=== PATIENT | male | born 1990 | race Caucasian/White ===

== ENCOUNTER → 2019-09-09 15:43 | Outpatient (BNVA) | payer SELFPAY | PROVIDERS: Visit Provider Nurse Practitioner Family | DX: R05 Cough (principal); J01.40 Acute pansinusitis, unspecified | CPT/HCPCS: 87081; 87804; 87880 ==

== ENCOUNTER 2020-02-24 12:36 | Emergency (ER) | payer SELFPAY ==
[2020-02-24 12:38] VITALS: BP 119/79; PULSE 89; RESP 18; TEMP 35.8; O2SAT 94; BMI 19.2
--- NOTE | 2020-02-24 12:49 | W.ED.EXTPRO ---
HPI - Extremity Problem General: Chief complaint: Extremity Injury, Lower Stated complaint: foot pain Time Seen by Provider: 02/24/20 12:40 Source: patient Mode of arrival: ambulatory Limitations: no limitations History of Present Illness: HPI Narrative: Patient is a 29-year-old male who presents to ED today with a complaint of right foot pain. Patient tells me pain initially began approximately a week and a half ago. He denies any known injury or trauma to the extremity. He complains of pain to the top lateral portion of his foot. He has noticed a small amount of swelling and bruising. 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 He denies dropping anything onto his foot. Patient is still able to ambulate on the extremity but states it is becoming increasingly difficult. He denies numbness, tingling, loss/changes in sensation of the foot. He has not noticed any redness/warmth or coolness/pallor. Associated symptoms: Deny fever(s) Review of Systems Const: Denies: fever(s) or chills Musc: Reports: extremity pain (R foot); Denies: neck pain, back pain, joint redness, joint warmth, limited range of motion or muscle cramps Neuro: Denies: numbness in extremities, weakness in extremities or sensory changes [facility] ED PFSH: Social History (Updated 09/09/19 @ 14:29 by Jade Castro LPN) Smoking and tobacco status: current every day smoker Alcohol intake: current Alcohol intake frequency: holidays/special occasions only Physical Exam Const: COMMON NORMALS: no acute distress, average body habitus, patient oriented x3, no limitations, healthy appearing, alert and well nourished Extremity: COMMON NORMALS: full ROM, capillary refill normal, no joint enlargement, no clubbing, cyanosis or edema, no calf tenderness and no pedal edema GENERAL: Yes normal exam except as noted OTHER: TTP lateral dorsal R foot; mild swelling and ecchymosis noted here; NV intact; DP/PT pulses and cap refill normal/equal bilaterally; no redness/warmth Neuro: COMMON NORMALS: patient oriented x3, moves all extremities, no focal motor deficits and no sensory deficits noted SENSORIUM/ORIENTATION: Yes alert Skin: NARRATIVE SKIN EXAM: see extremity assessment-otherwise normal skin exam Course Vital Signs: Vital signs: Vital Signs Temperature 96.5 F L 02/24/20 12:38 Pulse Rate 89 02/24/20 12:38 Respiratory Rate 18 02/24/20 12:38 Blood Pressure 119/79 02/24/20 12:38 Pulse Oximetry 94 02/24/20 12:38 MDM - Extremity (Nontraumatic) Imaging Data^: XR R foot: Radiologist's impression: [address] [address] XRay Report Signed Patient: Jaydon Rushing Unit #: [id number] : 1990 Age/Sex: 29 / M ADM Date: 02/24/20 Loc: ER Room/Bed: Attending Dr: Ordering Provider/Ordering MD: Maya Castro Date of Service: 02/24/20 Procedure(s): XR foot RT min 3V* 98364 Accession Number(s): [id number] Report Number: [id number] PROCEDURE INFORMATION: Exam: XR Right Foot Complete Exam date and time: 02/24/2020 1:00 PM Age: 29 years old Clinical indication: Pain; Swelling, leg or foot; Right; Additional info: Pain/swelling TECHNIQUE: Imaging protocol: XR Right foot. Views: 3 or more views. COMPARISON: No relevant prior studies available. FINDINGS: Bones/joints: Normal. Soft tissues: Normal. XR/XR foot RT min 3V* 55629 IMPRESSION: No acute findings. Dictated By: Steven Lenz MD Signed By: Steven Lenz MD Signed Date/Time: 02/24/201316 DD/ 131 Discharge Plan Discharge Patient Disposition: Home Clinical Impression: Acute pain of right foot Condition: Stable Prescriptions: No Action Tylenol Extra Strength 500 mg Tablet 1,000 mg PO PRN RF: 0 Discharge Orders: Discharge Order (Routine); Ordered 02/24/20 Ordered By: Maya Castro Activity Restrictions/Additional Instructions: As discussed you may begin using an Johan wrap as well as purchasing supportive insoles to wear in your boots at work. After work please ice and elevate the extremity. Follow-up with primary care in 2 weeks for continued symptoms. Coding Level of Care Code ED Converter Skimmer for Chg Fwd Exam Expanded Problem Focused
--- NOTE | 2020-02-24 13:26 | W.ED.EXTPRO ---
HPI - Extremity Problem General: Chief complaint: Extremity Injury, Lower Stated complaint: foot pain Time Seen by Provider: 02/24/20 12:40 Source: patient Mode of arrival: ambulatory Limitations: no limitations History of Present Illness: Associated symptoms: Deny fever(s) or rash Review of Systems Const: Denies: fever(s) or chills Musc: Reports: extremity pain (R foot) Skin/Breast: Denies: rash Neuro: Denies: numbness in extremities, weakness in extremities or sensory changes PFS ED PFSH: Social History (Updated 09/09/19 @ 14:29 by Jade Castro LPN) Smoking and tobacco status: current every day smoker Alcohol intake: current Alcohol intake frequency: holidays/special occasions only Physical Exam Const: COMMON NORMALS: no acute distress, average body habitus, no limitations, healthy appearing, alert and well nourished Neuro: COMMON NORMALS: moves all extremities, no focal motor deficits, no sensory deficits noted and gait normal SENSORIUM/ORIENTATION: Yes alert Skin: COMMON NORMALS: no rashes or lesions noted GENERAL SKIN EXAM: no rashes or lesions noted Course Vital Signs: Vital signs: Vital Signs Temperature 96.5 F L 02/24/20 12:38 Pulse Rate 86 02/24/20 13:27 Respiratory Rate 18 02/24/20 13:27 Blood Pressure 137/76 02/24/20 13:27 Pulse Oximetry 94 02/24/20 13:27 MDM - Extremity (Nontraumatic) Imaging Data^: R foot XR: Radiologist's impression: [place] [address] XRay Report Signed Patient: Jaydon Rushing Unit #: [id number] : 1990 Age/Sex: 29 / M ADM Date: 02/24/20 Loc: ER Room/Bed: Attending Dr: Ordering Provider/Ordering MD: Maya Castro Date of Service: 02/24/20 Procedure(s): XR foot RT min 3V* 15338 Accession Number(s): [id number] Report Number: [id number] PROCEDURE INFORMATION: Exam: XR Right Foot Complete Exam date and time: 02/24/2020 1:00 PM Age: 29 years old Clinical indication: Pain; Swelling, leg or foot; Right; Additional info: Pain/swelling TECHNIQUE: Imaging protocol: XR Right foot. Views: 3 or more views. COMPARISON: No relevant prior studies available. FINDINGS: Bones/joints: Normal. Soft tissues: Normal. XR/XR foot RT min 3V* 46430 IMPRESSION: No acute findings. Dictated By: Steven Lenz MD Signed By: Steven Lenz MD Signed Date/Time: 02/24/201316 DD/ 14 Discharge Plan Discharge Patient Disposition: Home Clinical Impression: Acute pain of right foot Condition: Stable Prescriptions: No Action Tylenol Extra Strength 500 mg Tablet 1,000 mg PO PRN RF: 0 Discharge Orders: Discharge Order (Routine); Ordered 02/24/20 Ordered By: Maya Castro Activity Restrictions/Additional Instructions: As discussed you may begin using an Johan wrap as well as purchasing supportive insoles to wear in your boots at work. After work please ice and elevate the extremity. Follow-up with primary care in 2 weeks for continued symptoms. Discharge Date/Time: 02/24/20 13:27 Coding Level of Care Code ED Technology Strategist for Chg Fwd Exam Comprehensive
[2020-02-24 13:27] VITALS: BP 137/76; PULSE 86; RESP 18; O2SAT 94
== END 2020-02-24 13:27 | disposition home or self-care (01) ==
PROVIDERS: Emergency Provider Physician Assistant
DX: M79.671 Pain in right foot (principal); F17.210 Nicotine dependence, cigarettes, uncomplicated
CPT/HCPCS: 12345; 73630; 99281; 99282

== ENCOUNTER → 2020-07-28 11:10 | Outpatient (BNVA) | payer OTHER, SELFPAY | PROVIDERS: Visit Provider Nurse Practitioner Family | DX: Z20.828 Contact with and (suspected) exposure to other viral communicable diseases (principal) | CPT/HCPCS: 87635 ==

== ENCOUNTER → 2020-10-19 11:05 | Outpatient (BNVA) | payer SELFPAY | PROVIDERS: PCP Nurse Practitioner Family; Visit Provider Nurse Practitioner Family | DX: M25.512 Pain in left shoulder (principal); M25.619 Stiffness of unspecified shoulder, not elsewhere classified | CPT/HCPCS: 73030 ==

== ENCOUNTER 2023-10-15 20:31 | Emergency (ER) | payer SELFPAY ==
[2023-10-15 20:32] VITALS: BP 121/85; PULSE 82; RESP 20; TEMP 36.2; O2SAT 95; BMI 21.8
--- NOTE | 2023-10-15 20:40 | ED_ITS ---
HPI - Wound/Laceration General: Chief Complaint: Wound/Laceration Stated Complaint: DOG BITE Time Seen by Provider: 10/15/23 20:32 [facility] PFSH: Social History Smoking and tobacco/nicotine status: current every day tobacco/nicotine user cigarettes Packs smoked per day: 0.5 Alcohol intake: never Substance/Drug Use: never Adopted: No Caregiver/support person: No Lives independently: Yes Household members: spouse Housing: House Marital status: Number of children: 2 Highest education level completed: High School Graduate service: No Current occupational status: employed Course Vital Signs: Vital signs: Vital Signs Temperature 97.1 F L 10/15/23 20:32 Pulse Rate 82 10/15/23 20:32 Respiratory Rate 20 H 10/15/23 20:32 Blood Pressure 121/85 10/15/23 20:32 Pulse Oximetry 95 10/15/23 20:32 Oxygen Delivery Me thod Room Air 10/15/23 20:32 Discharge Plan Discharge Condition: Stable Prescriptions: No Action ketorolac 10 mg tablet 10 mg PO QID PRN (Reason: pain) 5 Days Qty: 20 0RF Tylenol Extra Strength 500 mg Tablet 1,000 mg PO PRN Referrals: Rachael Vigil FNP-C [Primary Care Provider] - Coding 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
--- NOTE | 2023-10-15 20:49 | W.ED.WOUNDLC ---
HPI - Wound/Laceration General: Chief Complaint: Wound/Laceration Stated Complaint: DOG BITE Time Seen by Provider: 10/15/23 20:32 History of Present Illness: 32-year-old male bitten in the face and the left forearm by a dog. It was the neighbors dog. Dog is known and observable. No other significant injuries. He sustained a laceration to the upper lip from the base of the nose through the vermilion border along the phlitrum. Associated symptoms: Denies fever(s) or vomiting Review of Systems Const: Denies: fever(s) Resp: Denies: dyspnea GI: Denies: vomiting PFS ED PFSH: Social History Smoking and tobacco/nicotine status: current every day tobacco/nicotine user cigarettes Packs smoked per day: 0.5 Alcohol intake: never Substance/Drug Use: never Adopted: No Caregiver/support person: No Lives independently: Yes Household members: spouse Housing: House Marital status: Number of children: 2 Highest education level completed: High School Graduate service: No Current occupational status: employed Physical Exam Const: COMMON NORMALS: no acute distress GENERAL APPEARANCE: cooperative; not ill appearing and not frail appearing HENMT: COMMON NORMALS: normocephalic HEAD & SCALP: normocephalic FACE & SINUS: laceration (4cm base of nose through luis border upper lip) NOSE: Normal nares present Eye: COMMON NORMALS: Equal, round and reactive pupils present and EOMs intact bilaterally PUPIL: Yes Equal, round and reactive pupils present Neck/C-Spine: GENERAL: Yes trachea midline and No anterior neck swelling Chest: COMMONS NORMALS: normal inspection of the chest CHEST: Yes Symmetrical chest wall rise Resp: COMMON NORMALS: normal respiratory effort and No use of accessory muscles Cardio: COMMON NORMALS: regular rate and regular rhythm RATE: regular rate RHYTHM: regular rhythm Extremity: NARRATIVE EXTREMITY EXAM: 1cm laceration ventral left forearm. Neuro: IKE COMA SCALE: document GCS findings Ike coma scale eye opening: Spontaneous Garfield coma scale verbal response: Orientated Ike coma scale motor response: Obey commands Garfield coma scale total score: 15 Procedures Laceration Laceration 1: Site: face and lip Size (cm): 3 Description: irregular, contaminated and involves luis border Depth: simple, single layer Local Anesthetic: lidocaine 1% and bupivacaine 0.5% Amount of anesthesia used (mL): 4 Pre-repair: wound explored, irrigated extensively, deep structures intact and wound margins revised Skin layer closed with: other (Prolene) Size (cm): 5-0 Number of sutures: 11 Technique: simple, interrupted Course Vital Signs: Vital signs: Vital Signs Temperature 97.1 F L 10/15/23 20:32 Pulse Rate 88 10/15/23 23:35 Respiratory Rate 18 10/15/23 23:35 Blood Pressure 156/88 10/15/23 23:35 Pulse Oximetry 95 10/15/23 23:35 Oxygen Delivery Me thod Room Air 10/15/23 22:07 MDM - Wound/Laceration Medical Decision Making Elected to leave forearm laceration open, as it is small and contaminated. Complex lip laceration repaired as above. Rabies vaccination given. Patient counseled on rabies immunoglobulin. Since the dog was known to the patient, did not appear rabid, and was not a feral animal, rabies immunoglobulin was declined. He will follow normal rabies vaccination schedule from here on out. Antibiotics for bite wounds, sutures out in 7 days or so. No complications to repair. No radiology studies performed this visit Discharge Plan Discharge Patient Disposition: Home Clinical Impression: Dog bite, Laceration of face, complicated, Laceration of forearm Condition: Stable Prescriptions: New amoxicillin-pot clavulanate 875-125 mg tablet 1 tab PO BID Qty: 14 0RF hydrocodone-acetaminophen 5-325 mg tablet 1 tab PO Q8H PRN (Reason: pain) Qty: 7 0RF No Action ketorolac 10 mg tablet 10 mg PO QID PRN (Reason: pain) 5 Days Qty: 20 0RF Tylenol Extra Strength 500 mg Tablet 1,000 mg PO PRN Discharge Orders: Discharge ED (Routine); Ordered 10/15/23 Ordered By: Jun Kincaid Referrals: Rachael Vigil FNP-C [Primary Care Provider] - Patient Instructions: Rabies Vaccine (By injection), Animal Bite (ED), Facial Laceration (ED), Opioid Safety, Pain Management Activity Restrictions/Additional Instructions: Keep clean and dry for 24 hours, then you may wash with soap and running water. Do not submerge. Sutures should come out in 7 days or so. See your doctor for a wound check this coming week. Wash the forearm laceration with soap and running water as well. Antibiotics as directed. Ice can help with swelling. Return for any problems. You should finish your rabies vaccination series. 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
[2023-10-15 21:01] VITALS: RESP 16; O2SAT 97
[2023-10-15] MEDS: ondansetron 2 mg/ML SDV 2 mL 4 MG IVP (21:01)
[2023-10-15] MEDS: HYDROmorphone 1 mg/mL INJ 1 mL IVP (21:01)
[2023-10-15] MEDS: lidocaine 1% INJ 10 mL (per mL) 20 ML INJECTION (21:30)
[2023-10-15] MEDS: BUPivacaine 0.5% INJ 10 mL INJECTION (21:30)
[2023-10-15] MEDS: tetanus-dipt-pertussis 0.5 mL SDV IM (21:43)
[2023-10-15] MEDS: rabies vaccine 2.5 unit SDV IM (21:47)
[2023-10-15 22:07] VITALS: BP 136/82; PULSE 84; RESP 18; O2SAT 95
[2023-10-15] MEDS: amoxicillin-clav 875-125 mg Tablet 1 TAB PO (22:30)
[2023-10-15 23:35] VITALS: BP 156/88; PULSE 88; RESP 18; O2SAT 95
--- NOTE | 2023-10-15 23:35 | PC.NURSE ---
Pt sent home with 2tabs Oxycodone per Dr. Kincaid orders.
== END 2023-10-15 23:08 | disposition home or self-care (01) ==
PROVIDERS: Emergency Provider Emergency Medicine; PCP Nurse Practitioner Family
DX: S01.551A Open bite of lip, initial encounter (principal); S51.852A Open bite of left forearm, initial encounter; F17.210 Nicotine dependence, cigarettes, uncomplicated; W54.0XXA Bitten by dog, initial encounter; Z23 Encounter for immunization; Z20.3 Contact with and (suspected) exposure to rabies; Z29.14 Encounter for prophylactic rabies immune globulin
CPT/HCPCS: 12042; 12052; 90471; 90675; 90715; 96374; 99284; J1170; J2405; J3490

== ENCOUNTER 2023-10-18 19:31 | Emergency (ER) | payer MEDICAID, SELFPAY ==
[2023-10-18 19:37] VITALS: BP 109/71; PULSE 109; RESP 16; TEMP 36.8; O2SAT 99
--- NOTE | 2023-10-18 19:53 | W.ED.RECABL ---
HPI - Recheck/Abnormal Lab/Rx General: Chief Complaint: Recheck/Abnormal Lab/Rx Stated Complaint: rabies shot- 2nd round, wants other shots per pcp Time Seen by Provider: 10/18/23 19:41 Source: patient Mode of arrival: ambulatory Limitations: no limitations History of Present Illness: 32-year-old male who was seen here 3 days ago for dog bite he did have his face sutured he did not receive the rabies immunoglobulin at times because he refused he now wants immunoglobulin he also is here for his 3-day rabies vaccine he has no new complaints denies any fever. Review of Systems Const: Denies: fever(s) or chills ENMT: Denies: throat pain or dental pain Card: Denies: chest pain Resp: Denies: dyspnea GI: Denies: abdominal pain, nausea, vomiting or diarrhea Musc: Denies: neck pain or back pain Skin/Breast: Denies: rash Neuro: Denies: headache(s) PFSH ED PFSH: Surgical History No pertinent past surgical history Family History (Updated 10/17/23 @ 16:47 by Sunshine Darden MA) Other Breast cancer Heart disease Social History Smoking and tobacco/nicotine status: current every day tobacco/nicotine user cigarettes Packs smoked per day: 0.5 Alcohol intake: never Substance/Drug Use: never Adopted: No Caregiver/support person: No Lives independently: Yes Household members: spouse Housing: House Marital status: Number of children: 2 Highest education level completed: High School Graduate service: No Current occupational status: employed Physical Exam Const: COMMON NORMALS: no acute distress, patient oriented x3 and healthy appearing HENMT: COMMON NORMALS: normocephalic and atraumatic HEAD & SCALP: normocephalic and atraumatic OTHER: Wound to face clean dry intact with sutures in place Neck/C-Spine: COMMON NORMALS: full ROM and supple Chest: COMMONS NORMALS: normal inspection of the chest Resp: COMMON NORMALS: normal respiratory effort Extremity: COMMON NORMALS: normal to inspection and full ROM Neuro: COMMON NORMALS: patient oriented x3, moves all extremities and no focal motor deficits Psych: COMMON NORMALS: mental status grossly normal, Normal thought process present and cooperative THOUGHT PROCESS: Normal thought process present Skin: COMMON NORMALS: no rashes or lesions noted GENERAL SKIN EXAM: no rashes or lesions noted Course Vital Signs: Vital signs: Vital Signs Temperature 98.2 F 10/18/23 19:37 Pulse Rate 109 H 10/18/23 19:37 Respiratory Rate 16 10/18/23 19:37 Blood Pressure 109/71 10/18/23 19:37 Pulse Oximetry 99 10/18/23 19:37 Oxygen Delivery Me thod Room Air 10/18/23 19:37 MDM - Recheck/Abnormal Lab/Rx Medical Decision Making Patient presents here for rabies immunoglobulin along with second vaccine did give them he is to follow-up with PCP return if worsening he is to go to the infusion center for his day 7 and 14. Medical Records I reviewed the patient's medical records. All radiology interpretation(s) finalized by discharge Discharge Plan Discharge Patient Disposition: Home Clinical Impression: Dog bite, Rabies Condition: Stable Prescriptions: No Action ketorolac 10 mg tablet 10 mg PO QID PRN (Reason: pain) 5 Days Qty: 20 0RF mupirocin 2 % ointment 1 applic topical BID Qty: 22 0RF chlorhexidine gluconate [Peridex] 0.12 % mouthwash 15 ml buccal BID Qty: 473 0RF Tylenol Extra Strength 500 mg Tablet 1,000 mg PO PRN amoxicillin-pot clavulanate 875-125 mg tablet 1 tab PO BID Qty: 14 0RF hydrocodone-acetaminophen 5-325 mg tablet 1 tab PO Q8H PRN (Reason: pain) Qty: 7 0RF Discharge Orders: Discharge ED (Routine); Ordered 10/18/23 Ordered By: Pablo Díaz Referrals: Susie Lopez, CERTIFIED OPHTHALMIC ASSISTANT-C [Primary Care Provider] - 4-7 days Discharge Diet: Advance as tolerated Discharge Activity: Resume usual activity Patient Instructions: Animal Bite (ED) Coding Level of Care Code 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
[2023-10-18] MEDS: rabies vaccine 2.5 unit SDV IM (20:32)
[2023-10-18] MEDS: rabies IG 300 unit/mL SDV 1 mL 1350 UNIT IM (20:36)
== END 2023-10-18 20:52 | disposition home or self-care (01) ==
PROVIDERS: Emergency Provider Emergency Medicine; PCP Nurse Practitioner
DX: Z29.14 Encounter for prophylactic rabies immune globulin (principal); Z20.3 Contact with and (suspected) exposure to rabies; Z23 Encounter for immunization; W54.0XXA Bitten by dog, initial encounter; F17.210 Nicotine dependence, cigarettes, uncomplicated
CPT/HCPCS: 90375; 90471; 90675; 96372; 99283

== ENCOUNTER 2023-10-23 21:41 | Emergency (ER) | payer MEDICAID, SELFPAY ==
[2023-10-23 21:51] VITALS: BP 129/76; PULSE 62; RESP 16; TEMP 36.6; O2SAT 100
--- NOTE | 2023-10-23 22:37 | W.ED.RECABL ---
Documented by User: LEWIS Khan 10/23/23 22:40 HPI - Recheck/Abnormal Lab/Rx General: Chief Complaint: Recheck/Abnormal Lab/Rx Stated Complaint: rabies shoot Time Seen by Provider: 10/23/23 22:23 Source: patient Mode of arrival: ambulatory Limitations: no limitations History of Present Illness: Patient is a 32-year-old male presenting to the emergency department for third dose and rabies vaccination series. He has no new complaints at this time with no signs of infection. He states that his wounds are healing appropriately, and he will return soon for suture removal for those. Initial visit for: laceration and animal bite Returns today for: rabies shot Symptoms since prior visit: no new symptoms Context: planned re-check Associated symptoms: none Review of Systems General: Reports: 10 or more systems reviewed and unremarkable except in HPI and below Const: Reports: other (Presents for third rabies vaccination); Denies: fever(s), chills or fatigue Eyes: Denies: change in vision ENMT: Denies: throat pain, ear or mastoid pain or nasal discharge Card: Denies: chest pain, palpitations, swelling of feet/ankles or lightheadedness Resp: Denies: dyspnea, productive cough or wheezing GI: Denies: abdominal pain, nausea, vomiting, diarrhea or constipation : Denies: flank pain, difficulty urinating, dysuria or urinary frequency Musc: Denies: neck pain, back pain or joint pain Skin/Breast: Denies: rash Neuro: Denies: headache(s), numbness in extremities or weakness in extremities PFS ED PFSH: Medical History (Updated 10/23/23 @ 22:33 by LEWIS Khan) Oral cellulitis Surgical History No pertinent past surgical history Family History Other Breast cancer Heart disease Social History Smoking and tobacco/nicotine status: current every day tobacco/nicotine user cigarettes Packs smoked per day: 0.5 Alcohol intake: never Substance/Drug Use: never Adopted: No Caregiver/support person: No Lives independently: Yes Household members: spouse Housing: House Marital status: Number of children: 2 Highest education level completed: High School Graduate service: No Current occupational status: employed Physical Exam Const: COMMON NORMALS: no acute distress, patient oriented x3 and no limitations GENERAL APPEARANCE: cooperative, comfortable and well developed ORIENTATION/CONSCIOUSNESS: Yes awake, Yes oriented to person, Yes oriented to place and Yes oriented to time HENMT: COMMON NORMALS: normocephalic, atraumatic and hearing grossly normal bilaterally HEAD & SCALP: normocephalic and atraumatic Eye: COMMON NORMALS: Equal, round and reactive pupils present, EOMs intact bilaterally and conjunctivae normal CONJUNCTIVA: Yes conjunctivae normal PUPIL: Yes Equal, round and reactive pupils present Neck/C-Spine: COMMON NORMALS: full ROM, supple and no JVD Resp: COMMON NORMALS: normal respiratory effort, No retractions, No use of accessory muscles and clear to auscultation bilaterally AUSCULTATION: clear to auscultation bilaterally Cardio: COMMON NORMALS: no JVD, regular rate, regular rhythm, No clicks present (Cardio), No murmurs present (Cardio) and No rub (Cardio) RATE: regular rate RHYTHM: regular rhythm GI: COMMON NORMALS: Normal to inspection, nondistended, normoactive bowel sounds present, Soft to palpation and non-tender AUSCULTATION: Yes normoactive bowel sounds PALPATION: Yes Soft to palpation RECTAL EXAM: Yes deferred Extremity: COMMON NORMALS: normal to inspection, full ROM and capillary refill normal Neuro: COMMON NORMALS: patient oriented x3, moves all extremities, no focal motor deficits and no sensory deficits noted SENSORIUM/ORIENTATION: Yes oriented to person, Yes oriented to place and Yes oriented to time Psych: COMMON NORMALS: mental status grossly normal and Normal thought process present THOUGHT PROCESS: Normal thought process present Skin: NARRATIVE SKIN EXAM: Well-healing laceration to left maxillary region. Course Vital Signs: Vital signs: Vital Signs Temperature 97.8 F 10/23/23 21:51 Pulse Rate 62 10/23/23 21:51 Respiratory Rate 16 10/23/23 21:51 Blood Pressure 129/76 10/23/23 21:51 Pulse Oximetry 100 10/23/23 21:51 Oxygen Delivery Me thod Room Air 10/23/23 21:51 MDM - Recheck/Abnormal Lab/Rx Medical Decision Making Patient presented for third rabies vaccination. States he called infusion center but did not get an answer so he came to ED for third vaccination. He has no complaints at this time. His vitals are normal on arrival. Examination did reveal that the laceration he had to his left upper lip is healing well. His rabies vaccination was given and he is informed to return in a week for fourth vaccination. All other questions and concerns addressed at this time. No radiology studies performed this visit Discharge Plan Discharge Patient Disposition: Home Clinical Impression: Need for rabies vaccination Condition: Stable Prescriptions: No Action ketorolac 10 mg tablet 10 mg PO QID PRN (Reason: pain) 5 Days Qty: 20 0RF mupirocin 2 % ointment 1 applic topical BID Qty: 22 0RF chlorhexidine gluconate [Peridex] 0.12 % mouthwash 15 ml buccal BID Qty: 473 0RF Tylenol Extra Strength 500 mg Tablet 1,000 mg PO PRN amoxicillin-pot clavulanate 875-125 mg tablet 1 tab PO BID Qty: 14 0RF hydrocodone-acetaminophen 5-325 mg tablet 1 tab PO Q8H PRN (Reason: pain) Qty: 7 0RF Discharge Orders: Discharge ED (Routine); Ordered 10/23/23 Ordered By: Juan Francisco Roy Referrals: Susie Lopez, [facility] [Primary Care Provider] - Discharge Diet: Usual diet Discharge Activity: Resume usual activity Patient Instructions: Rabies (ED) Activity Restrictions/Additional Instructions: Follow-up in 1 week for her last rabies vaccination. Return with any new or concerning symptoms you may have. Coding Level of Care Code ED Corrections Lieutenant for Chg Fwd Documented by User: Osmany Still DO 10/24/23 07:39 HPI - Recheck/Abnormal Lab/Rx General: Chief Complaint: Recheck/Abnormal Lab/Rx Stated Complaint: rabies shoot Time Seen by Provider: 10/23/23 22:23 PFSH ED PFSH: Medical History (Updated 10/23/23 @ 22:33 by LEWIS Khan) Oral cellulitis Surgical History No pertinent past surgical history Family History Other Breast cancer Heart disease Social History Smoking and tobacco/nicotine status: current every day tobacco/nicotine user cigarettes Packs smoked per day: 0.5 Alcohol intake: never Substance/Drug Use: never Adopted: No Caregiver/support person: No Lives independently: Yes Household members: spouse Housing: House Marital status: Number of children: 2 Highest education level completed: High School Graduate service: No Current occupational status: employed Course Vital Signs: Vital signs: Vital Signs Temperature 97.8 F 10/23/23 21:51 Pulse Rate 62 10/23/23 21:51 Respiratory Rate 16 10/23/23 21:51 Blood Pressure 129/76 10/23/23 21:51 Pulse Oximetry 100 10/23/23 21:51 Oxygen Delivery Me thod Room Air 10/23/23 21:51 MDM - Recheck/Abnormal Lab/Rx Medical Decision Making Patient presented for third rabies vaccination. States he called infusion center but did not get an answer so he came to ED for third vaccination. He has no complaints at this time. His vitals are normal on arrival. Examination did reveal that the laceration he had to his left upper lip is healing well. His rabies vaccination was given and he is informed to return in a week for fourth vaccination. All other questions and concerns addressed at this time. Chart reviewed Discharge Plan Discharge Patient Disposition: Home Clinical Impression: Need for rabies vaccination Condition: Stable Prescriptions: No Action ketorolac 10 mg tablet 10 mg PO QID PRN (Reason: pain) 5 Days Qty: 20 0RF mupirocin 2 % ointment 1 applic topical BID Qty: 22 0RF chlorhexidine gluconate [Peridex] 0.12 % mouthwash 15 ml buccal BID Qty: 473 0RF Tylenol Extra Strength 500 mg Tablet 1,000 mg PO PRN amoxicillin-pot clavulanate 875-125 mg tablet 1 tab PO BID Qty: 14 0RF hydrocodone-acetaminophen 5-325 mg tablet 1 tab PO Q8H PRN (Reason: pain) Qty: 7 0RF Discharge Orders: Discharge ED (Routine); Ordered 10/23/23 Ordered By: Juan Francisco Roy Referrals: Susie Lopez, [facility] [Primary Care Provider] - Discharge Diet: Usual diet Discharge Activity: Resume usual activity Patient Instructions: Rabies (ED) Activity Restrictions/Additional Instructions: Follow-up in 1 week for her last rabies vaccination. Return with any new or concerning symptoms you may have. Coding Level of Care Code ED Corrections Lieutenant for Popeye Spears
[2023-10-23] MEDS: rabies vaccine 2.5 unit SDV IM (22:43)
== END 2023-10-23 22:51 | disposition home or self-care (01) ==
PROVIDERS: Emergency Provider Physician Assistant; PCP Nurse Practitioner
DX: Z29.14 Encounter for prophylactic rabies immune globulin (principal); Z20.3 Contact with and (suspected) exposure to rabies; Z23 Encounter for immunization; F17.210 Nicotine dependence, cigarettes, uncomplicated
CPT/HCPCS: 90471; 90675; 99283